=== PATIENT | male | born 1970 | race Caucasian/White ===

== ENCOUNTER 2024-01-10 11:27 | Outpatient (REF) | payer BC, SELFPAY ==
--- OUTSIDE RECORDS SUMMARY | 2024-01-10 11:34 | XMS_ITS | Patient Health Record ---
Author Name Unknown Organization [facility] Visit Address [address], [address] [place] [address] Care Team Providers Care Pediatric Neuropsychologist Name Role Phone Na Maik Unavailable [phone] ALLERGIES No Known Allergies RESULTS Component Value Reference Range Notes CBC, WITH AUTO DIFF Reviewed date:11/18/2023 09:04:20 AM Interpretation: Performing Lab: Notes/Report: COMPREHENSIVE METABOLIC PROF ILE Reviewed date:11/18/2023 09:04:20 AM Interpretation: Performing Lab: Notes/Report: Alk Phos 85 34-104 IntlUnit/L Albumin Level 4.4 3.5-5.7 g/dL Anion Gap 6.0 3.0-12.0 BUN/Creat Ratio 11.8 8.0-20.0 Osmolality 279 275-295 mOsm/kg A/G Ratio 1.4 1.0-2.5 g/dL Globulin 3.1 2.3-3.5 g/dL - Ordering Provider: MAIK GORDILLO LIPID PROFILE Reviewed date:11/18/2023 09:04:20 AM Interpretation: Performing Lab: Notes/Report: LDL 110.0 Optimal: Less than 100 mg/dL Above Optimal: 100 - 129 mg/dL Borderline High: 130 - 159 mg/dL High: 160 - 189 mg/dL Very High: > or = 190 mg/dL Chol/HDL 4.0 RISK MALE FEMALE 1/2 average 3.4 3.3 Average 5.0 4.4 2x Average 9.6 7.1 3x Average 23.4 11.0 - Ordering Provider: MAIK GORDILLO PSA - SCREENING Reviewed date:11/18/2023 09:04:20 AM Interpretation: Performing Lab: Notes/Report: TSH Reviewed date:11/18/2023 09:04:20 AM Interpretation: Performing Lab: Notes/Report: TSH 1.71 0.45-5.33 mcIntlUnit/mL - Ordering Provider: MAIK GORDILLO REASON FOR REFERRAL Reason screening colo Diagnosis 1 Encounter for screen ing for malignant neoplasm of colon (Z12.11) Referral Organization [facility] Referring Provider First Name Maik Referring Provider Last Name Gordillo Referring Provider Speciality Internal M edicine Referred Provider Austyn Clements Referred Provider Specialty Gastroentero logy Referral Priority Routine SOCIAL HISTORY Tobacco Use: Social History Observation Description Date Details (start date - stop date) Never Smoker NA - NA Sex Assigned At : Social History Observation Description Sex Assigned At Unknown Tobacco Use/Smoking Question Answer Notes Are you a nonsmoker Alcohol Screen Question Answer Notes Did you have a drink contain ing alcohol in the past year? Yes How often did you have a dri nk containing alcohol in the past year? Monthly or less (1 point) How many drinks did you have on a typical day when you were drinking in the past year? 1 or 2 drinks (0 point) How often did you have 6 or more drinks on one occasion in the past year? Never (0 point) Points 1 Interpretation Negative VITAL SIGNS Blood pressure diastolic 88 mm Hg 11/11/2023 Height 73 in 11/11/2023 Blood pressure systolic 138 mm Hg 11/11/2023 Weight 238 lbs 11/11/2023 BMI 31.4 kg/m2 11/11/2023 Encounters Encounter Location Date Provider Diagnosis [facility] [address] [place], [place] [id number] 11/11/2023 Maik Gordillo Encounter for genera l adult medical examination without abnormal findings Z00.00 ; Encounter for screening for malignant neoplasm of colon Z12.11 and Encounter for screening for malignant neoplasm of prostate Z12.5 ASSESSMENTS Encounter Date Diagnosis Assessment Notes Treatment Notes Treatment Clinical Notes 11/11/2023 Encounter for general adult medical examination without abnormal findings (ICD-10 - Z00.00) overweight but generally feels well Discussed diet and weight loss, rec weight watchers diet, pt woudl like to try lifestyle modification rather than medications at this time. will check in in 3 months 11/11/2023 Encounter for screening for malignant neoplasm of colon (ICD-10 - Z12.11) 11/11/2023 Encounter for screening for malignant neoplasm of prostate (ICD-10 - Z12.5) discussed risk and benefits of psa screening, pt with prev cancer, will check PLAN OF TREATMENT No Information Insurance Providers Payer Name Payer Address Payer Phone Subscriber Number Group Number Insured Name Patient Relationship to Insured Coverage Start Date Coverage End Date [facility] [address] [place], [place] [id number] Jovani Watters Self - patient is the insured 4 MEDICAL (GENERAL) HISTORY Medical History History ICD Code testicular canc er Surgical History Surgery Date(Month/Year) vasectomy ochectomy
--- OUTSIDE RECORDS SUMMARY | 2024-01-10 11:34 | XMS_ITS | Continuity of Care Document ---
Author Name Unknown Organization [facility] Address [address] [place] [address] Care Team Providers Care Guest Laundry Attendant Name Role Phone MAIK GORDILLO MD Primary Care Physician Encounter [facility]TT[facility]_SC FIN NBR [id number] Date(s): 11/11/23 - 11/11/23 [facility] [address] [place] [address] [place] Encounter Diagnosis Encounter for screening for malignant neoplasm of prostate(Final) - Discharge Disposition: Home or Self Care Attending Physician: MAIK GORDILLO MD Admitting Physician: MAIK GORDILLO MD Referring Physician: MAIK GORDILLO MD Results Laboratory List Name Date CBC w/ Diff (CBC, WITH AUTO DIFF) 4 Comprehensive Metabolic Panel (COMPREHEN SIVE METABOLIC PROFILE) 11/11/23 Lipid Panel (LIPID PROFILE) 11/11/23 PSA Screen (PSA - SCREENING) 11/11/23 Thyroid Stimulating Hormone (TSH) 4 Automated Diff 11/11/23 Most recent to oldest [Reference Range]: 1 WBC [4.8-10.8 K/mcL] 8.6 K/mcL (11/11/23 9:23 AM) RBC [4.70-6.10 Million/mcL] 4.87 Million /mcL (11/11/23 9:23 AM) Neutro Auto [42.2-75.2 %] 60.9 % (11/11/23 9:23 AM) Lymph Auto [20.5-51.1 %] 31.3 % (11/11/23 9:23 AM) [place] Auto [1.7-9.3 %] 5.6 % (11/11/23 9:23 AM) Basophil Auto [0.0-0.8 %] 0.7 % (11/11/23 9:23 AM) BUN [7-25 mg/dL] 13 mg/dL (11/11/23:23 AM) Cholesterol Total [<=200 mg/dL] 182 mg/d L (11/11/23:23 AM) LDL 110.0 mg/dL 1 *NA* (11/11/23 AM) Glucose Level [70-109 mg/dL] 127 mg/dL *HI* (11/11/23 AM) Potassium Level [3.5-5.1 mmol/L] 5.1 mmo l/L (11/11/23: AM) Baso Absolute [0.0-0.2 K/mcL] 0.1 K/mcL (11/11/23: AM) MCV [80.0-94.0 fL] 90.4 fL (11/11/23: AM) HDL [23-92 mg/dL] 46 mg/dL (11/11/23: AM) AST [13-39 IntlUnit/L] 30 IntlUnit/L (11/11/23: AM) ALT [7-52 IntlUnit/L] 44 IntlUnit/L (11/11/23: AM) MCHC [32.0-37.0 g/dL] 33.8 g/dL (11/11/23: AM) Osmolality [275-295 mOsm/kg] 279 mOsm/kg (11/11/23: AM) Sodium Level [136-145 mmol/L] 139 mmol/L (11/11/23:23 AM) Chol/HDL 4.0 2 *NA* (11/11/23 AM) Lymph Absolute [1.2-3.4 K/mcL] 2.7 K/mcL (11/11/23: AM) Hct [42.0-52.0 %] 44.0 % (11/11/23 AM) Triglycerides [<=150 mg/dL] 132 mg/dL (11/11/23:23 AM) Calcium Level [8.6-10.3 mg/dL] 9.5 mg/dL (11/11/23:23 AM) [place] Absolute [0.1-0.6 K/mcL] 0.5 K/mcL (11/11/2323 AM) Albumin Level [3.5-5.7 g/dL] 4.4 g/dL (11/11/23:23 AM) Protein Total [6.4-8.9 g/dL] 7.5 g/dL (11/11/2323 AM) MCH [27.0-31.0 pg] 30.6 pg (11/11/23: AM) Neutro Absolute [1.4-6.5 K/mcL] 5.2 K/mc L (11/11/23: AM) Bilirubin Total [0.3-1.0 mg/dL] 0.7 mg/d L (11/11/23: AM) Hgb [14.0-18.0 g/dL] 14.9 g/dL (11/11/23: AM) Alk Phos [34-104 IntlUnit/L] 85 IntlUnit /L (11/11/23: AM) MPV [7.4-10.4 fL] 8.7 fL (11/11/23:23 AM) Platelets [130-400 K/mcL] 323 K/mcL (11/11/23:23 AM) CO2 [21-31 mmol/L] 28 mmol/L (11/11/23: AM) Eos Absolute [0.0-0.2 K/mcL] 0.1 K/mcL (11/11/23: AM) TSH [0.45-5.33 mcIntlUnit/mL] 1.71 mcInt lUnit/mL (11/11/23:23 AM) Chloride Level [98-107 mmol/L] 105 mmol/ L (11/11/23:23 AM) RDW-CV [11.5-14.5 %] 14.2 % (11/11/23 AM) A/G Ratio [1.0-2.5 g/dL] 1.4 g/dL (11/11/23:23 AM) BUN/Creat Ratio [8.0-20.0] 11.8 (11/11/23: AM) Globulin [2.3-3.5 g/dL] 3.1 g/dL (11/11/23 9:23 AM) Creatinine Level [0.70-1.30 mg/dL] 1.10 mg/dL (11/11/23 9:23 AM) PSA Total Screening [<=4.000 ng/mL] 2.58 2 ng/mL 3 (11/11/23 9:23 AM) Anion Gap [3.0-12.0] 6.0 (11/11/23 9:23 AM) Eos, Auto [0.00-3.00 %] 1.50 % (11/11/23 9:23 AM) eGFR CKD-EPI [>=60 mL/min/1.73 m2] 81 mL /min/1.73 m2 (11/11/23 9:23 AM) 1Interpretive Data: Optimal: Less than 100 mg/dL Above Optimal: 100 - 129 mg/dL Borderline High: 130 - 159 mg/dL High: 160 - 189 mg/dL Very High: > or = 190 mg/dL 2Interpretive Data: RISK MALE FEMALE 1/2 average 3.4 3.3 Average 5.0 4.4 2x Average 9.6 7.1 3x Average 23.4 11.0 3Interpretive Data: The concentration of Prostate specific antigen determined from different manufactures and assay methods will vary due to differences in the method and reagent specificity. Values obtained by different methods cannot be used interchangeably and may not be comparable. This is a [employer]??paramagnetic particle, chemiluminescent immunoassay. Patient Care team information Care Team Personnel Name: MAIK GORDILLO MD Position: Physician Member Role: Primary Care Physician Address: Address: [address] [place] [address]
== END 2024-01-10 11:28 | disposition home or self-care (01) ==
LOC: NCHCN 11:27
PROVIDERS: PCP General Practice; Visit Provider Physician Assistant Medical
DX: J02.9 Acute pharyngitis, unspecified (principal)
CPT/HCPCS: 87070